=== PATIENT | female | born 1990 | race Caucasian/White ===

== ENCOUNTER → 2017-05-20 | Outpatient (CLI) | payer BC ==
[2017-05-20 10:31] LABS: BILIRUBIN,URINE NEGATIVE (NEGATIVE); BLOOD/HEMOGLOBIN,URINE NEGATIVE (NEGATIVE); GLUCOSE, URINE NEGATIVE (NEGATIVE); KETONES,URINE NEGATIVE (NEGATIVE); LEUKOCYTE ESTERASE ,URINE 1+ (NEGATIVE); NITRITES,URINE NEGATIVE (NEGATIVE); PROTEIN,URINE NEGATIVE (NEGATIVE); UROBILINOGEN,URINE NORMAL (NORMAL)
[2017-05-20 10:32] LABS: BASOPHILS # (AUTO) 0.1 X10^3/uL (0.0-0.1); BASOPHILS % (AUTO) 1.1 % (0.2-1.0); EOSINOPHILS # (AUTO) 0.6 x10^3/uL (0.0-0.2); EOSINOPHILS % (AUTO) 5.5 % (0.9-2.9); HEMATOCRIT 37.3 % (36.0-47.0); HEMOGLOBIN 12.5 g/dL (12.0-16.0); LYMPHOCYTES # (AUTO) 2.6 X10^3/uL (1.3-2.9); LYMPHOCYTES % (AUTO) 22.4 % (21.0-51.0); MEAN CORPUSCULAR HEMOGLOBIN 28.7 pg (27.0-34.0); MEAN CORPUSCULAR HGB CONC 33.7 g/dL (33.0-35.0); MEAN CORPUSCULAR VOLUME 85.3 fL (80.0-100.0); MONOCYTES # (AUTO) 0.5 x10^3/uL (0.3-0.8); NEUTROPHILS # (AUTO) 7.7 x10^3/uL (2.2-4.8); PLATELET COUNT 202 X10^3/uL (150.0-450.0); RED BLOOD COUNT 4.37 X10^6/uL (3.5-5.4); RED CELL DISTRIBUTION WIDTH 13.6 % (11.6-16.5); WHITE BLOOD COUNT 11.5 X10^3/uL (3.6-10.0)
[2017-05-20 10:46] LABS: APPEARANCE,URINE CLEAR (CLEAR); COLOR,URINE YELLOW (YELLOW)
[2017-05-20 10:47] LABS: BACTERIA,URINE NEGATIVE /HPF (NEGATIVE); RBC,URINE 0-2 /HPF (NEGATIVE); SQUAMOUS EPITHELIAL CELL,UR NEGATIVE /HPF (NEGATIVE)
[2017-05-20 10:53] LABS: BLOOD UREA NITROGEN 11 mg/dL (7-18); CALCIUM 8.7 mg/dL (8.5-10.1); CARBON DIOXIDE 23.7 mmol/L (21-32); CHLORIDE 105 mmol/L (98-107); CREATININE 0.74 mg/dL (0.55-1.02); SODIUM 137 mmol/L (136-145); eGFR BLACK RACES > 60 (>60); eGFR NON BLACK RACES > 60 (>60)
== END ==
LOC: LAB 10:07
PROVIDERS: ATTEND Specialist
DX: Z01.818 Encounter for other preprocedural examination (principal); Z34.83 Encounter for supervision of other normal pregnancy, third trimester
CPT/HCPCS: 36415; 80048; 80307; 81001; 85025; 86592; 86850; 86900; 86901; G0434

== ENCOUNTER 2017-05-22 06:24 | Inpatient (IN) | payer BC ==
[~2017-05-22 06:24] MED LIST: TORADOL 30 MG VIAL ONE
[2017-05-22] MEDS ORDERED: AMPICILLIN VIAL 2 GM 2 GM in NS 100 ML IV + SPIKE MINIBAG* 100 ML IV SCH (06:27)
[2017-05-22] MEDS ORDERED: REGLAN INJ 10 MG VIAL IVP PRN ×2 (06:27→18:00)
[2017-05-22] MEDS ORDERED: PHENERGAN INJ 25 MG IV PRN ×3 (06:27→18:00)
[2017-05-22] MEDS ORDERED: D5LR 1L W PITOCIN 10 UNITS/L 10 UNITS/1,000 ML BAG IV PRN (06:27)
[2017-05-22] MEDS ORDERED: NUBAIN INJ 200 MG VIAL MULTIDOSE IVP PRN (06:27)
[2017-05-22] MEDS ORDERED: PITOCIN IVP ONE (06:27)
[2017-05-22] MEDS ORDERED: D5 1/2 NS 1000 ML 1,000 ML IV SCH (06:27)
[2017-05-22] MEDS ORDERED: LR 1000 ML IV 1,000 ML IV ONE ×2 (06:36→11:01)
[2017-05-22] MEDS ORDERED: AMPICILLIN VIAL 2 GM ONE (06:37)
[2017-05-22] MEDS ORDERED: AMPICILLIN VIAL 1 GM ONE ×2 (06:37→14:41)
[2017-05-22] MEDS ORDERED: D5 1/2 NS 1L W PITOCIN 20 UNITS/L 20 UNITS/1,000 ML BAG IV ONE (06:37)
[2017-05-22] MEDS ORDERED: NS 100 ML IV 200 ML IV ONE (06:41)
--- NOTE | 2017-05-22 07:22 | DR.OB ---
OB Quick Note - Assessment/Plan Assessment/Plan: L&D 05/22/17 at 6:55am S-No complaint. O-Afebrile,VSS IUN=[id number] with good LTV, +accel, no decel. CTX=occ., mild. CVX=2cm/50%/-1/VTX AROM with clear fluid. IUPC and FSE placed. A-IUP at 39 2/7 weeks for induction +GBS +quad screen for downs P-Begin pitocin induction IV ABX in labor for +GBS Anticipate
[2017-05-22] MEDS ORDERED: FENTANYL INJ 100 mcg ONE (10:15)
[2017-05-22] MEDS ORDERED: NAROPIN EPIDURAL 0.2% + FENTANYL 90MCG 60 ML EPI ONE (10:16)
[2017-05-22] MEDS: AMPICILLIN VIAL 1 GM 1 GM in NS 50 ML IV + SPIKE MINIBAG* 50 ML IV SCH ×3 (10:55→14:50)
[2017-05-22] MEDS ORDERED: NAROPIN EPIDURAL 0.2% + FENTANYL 90MCG EPI SCH (12:00)
--- NOTE | 2017-05-22 12:26 | DR.OB ---
OB Quick Note - Assessment/Plan Assessment/Plan: L&D 05/22/17 at 11:58am Pitocin=14mu/min. Ampicillin S-No complaint. s/p epidural O-Afebrile,VSS YES=267 with good LTV, +accel, no decel. CTX=q 1 1/2 min., about 50-75mmHg CVX=3-4cm/90%/0 A-IUP at 39 2/7 weeks for induction +GBS +quad screen for downs P-Cont. pitocin induction Cont. ABX in labor Anticipate
[2017-05-22] MEDS ORDERED: NS 100 ML IV 100 ML IV ONE (14:42)
--- NOTE | 2017-05-22 17:12 | DR.OB ---
OB Quick Note - Assessment/Plan Assessment/Plan: Delivery Note [facility] 05/22/17 at 5:00pm Patient complete and pushing. Head delivered over intact perineum. Nose and mouth bulb suctioned. No nuchal cord. Compound presentation with right hand to chin noted. Body delivered over intact perineum. Cord clamped x 2 and cut. Infant handed to attendant. Cord sent for gases. Placenta delivered spontaneously / intact / 3 vessel cord. No CVX tears. A small midline second degree tear noted and repaired with 0-vicryl in usual fashion. A viable female , VTX/OA, wt=7'9" and 9/9, stable to NBN. Mother stable to RR. EBL =300cc.
[2017-05-22] MEDS ORDERED: MOTRIN TAB 800 MG PO PRN ×2 (17:13→18:00)
[2017-05-22] MEDS ORDERED: ADACEL TDaP IM ONE (18:00)
[2017-05-22] MEDS ORDERED: AMBIEN PO PRN (18:00)
[2017-05-22] MEDS ORDERED: D5 1/2 NS 1000 ML 1,000 ML with PITOCIN 20 UNITS IV SCH ×2 (18:00)
[2017-05-22] MEDS ORDERED: MILK OF MAGNESIA PO PRN (18:00)
[2017-05-22] MEDS ORDERED: DERMOPLAST SPRAY TOP PRN (18:00)
[2017-05-22] MEDS: ZANTAC PO SCH (21:18)
[2017-05-23] MEDS: D5 1/2 NS 1000 ML 1,000 ML with PITOCIN 20 UNITS IV SCH ×6 (05:17→10:07)
[2017-05-23 05:30] LABS: HEMOGLOBIN 11.7 g/dL (12.0-16.0)
[2017-05-23] MEDS: PRENATAL PLUS PO SCH (08:44)
[2017-05-23] MEDS: ZANTAC PO SCH ×2 (08:48→22:10)
[2017-05-24] MEDS: PRENATAL PLUS PO SCH (08:02)
[2017-05-24] MEDS: ZANTAC PO SCH (08:03)
[2017-05-24 16:02] VITALS: BP 116/75
== END 2017-05-24 17:00 | disposition home or self-care (01) | DRG 775 ==
LOC: LD 06:24 → MED/SURG 18:03
PROVIDERS: ADMIT Specialist; ATTEND Specialist
PROC: 10E0XZZ Delivery of Products of Conception, External Approach (ICD-10-PCS; principal; 2017-05-22)
PROC: 0KQM0ZZ Repair Perineum Muscle, Open Approach (ICD-10-PCS; 2017-05-22)
PROC: 10907ZC Drainage of Amniotic Fluid, Therapeutic from Products of Conception, Via Natural or Artificial Opening (ICD-10-PCS; 2017-05-22)
PROC: 3E033VJ Introduction of Other Hormone into Peripheral Vein, Percutaneous Approach (ICD-10-PCS; 2017-05-22)
PROC: 00HU33Z Insertion of Infusion Device into Spinal Canal, Percutaneous Approach (ICD-10-PCS; 2017-05-22)
PROC: 3E0234Z Introduction of Serum, Toxoid and Vaccine into Muscle, Percutaneous Approach (ICD-10-PCS; 2017-05-22)
DX: O99.824 Streptococcus B carrier state complicating childbirth (principal); Z37.0 Single live birth; B95.1 Streptococcus, group B, as the cause of diseases classified elsewhere; O70.1 Second degree perineal laceration during delivery; O28.5 Abnormal chromosomal and genetic finding on antenatal screening of mother; Z3A.39 39 weeks gestation of pregnancy; Z23 Encounter for immunization
CPT/HCPCS: 09167; 36415; 59409; 85014; 85018; A4216; A4222; S0197; J0290; J1885; J2590; J3010; J7042; J7120

== ENCOUNTER 2020-11-06 15:09 | Inpatient (IN) ==
[2020-11-06 15:14] VITALS: BMI 36.8
[2020-11-06] MEDS ORDERED: LR 1000 ML IV 1,000 ML IV ONE (15:16)
[2020-11-06] MEDS ORDERED: BENADRYL INJ 50 MG VIAL IVP PRN ×3 (15:20→18:06)
[2020-11-06] MEDS ORDERED: TORADOL 30 MG VIAL IVP PRN ×2 (15:20→18:06)
[2020-11-06] MEDS ORDERED: ZOFRAN INJ 4 MG VIAL IVP PRN ×3 (15:20→18:06)
[2020-11-06] MEDS ORDERED: D5 1/2 NS 1L W PITOCIN 20 UNITS/L 20 UNITS/1,000 ML BAG IV ONE (15:40)
[2020-11-06] MEDS ORDERED: XYLOCAINE 1 % (PLAIN) ONE (15:40)
[2020-11-06] MEDS ORDERED: DILAUDID INJ ONE (15:40)
[2020-11-06] MEDS ORDERED: NS 1000 ML 1,000 ML ONE (15:41)
[2020-11-06] MEDS ORDERED: ZOFRAN INJ 4 MG VIAL ONE (15:45)
[2020-11-06] MEDS ORDERED: TORADOL 30 MG VIAL ONE (15:45)
[2020-11-06] MEDS ORDERED: PITOCIN ONE (15:45)
[2020-11-06] MEDS ORDERED: LR IV ONE (15:45)
[2020-11-06] MEDS ORDERED: DIPRIVAN VIAL ONE (15:45)
[2020-11-06] MEDS ORDERED: KETALAR ONE (15:45)
[2020-11-06] MEDS ORDERED: ANCEF 1 GRAM IV PREMIX* 2 G/100 ML BAG IV ONE (15:46)
[2020-11-06] MEDS ORDERED: D5 1/2 NS 1000 ML 1,000 ML IV SCH (16:00)
[2020-11-06 16:14] LABS: AMNISURE ROM TEST NO MEMBRANES RUPTURE (NO RUPTURE)
[2020-11-06 16:39] LABS: BILIRUBIN,URINE NEGATIVE (NEGATIVE); BLOOD/HEMOGLOBIN,URINE 1+ (NEGATIVE); GLUCOSE, URINE NEGATIVE (NEGATIVE); KETONES,URINE NEGATIVE (NEGATIVE); LEUKOCYTE ESTERASE ,URINE 1+ (NEGATIVE); NITRITES,URINE NEGATIVE (NEGATIVE); PROTEIN,URINE 3+ (NEGATIVE); UROBILINOGEN,URINE NORMAL (NORMAL)
[2020-11-06 16:43] LABS: APPEARANCE,URINE CLEAR (CLEAR); COLOR,URINE YELLOW (YELLOW)
[2020-11-06 16:44] LABS: BACTERIA,URINE NEGATIVE /HPF (NEGATIVE); RBC,URINE 0-2 /HPF (0-3); SQUAMOUS EPITHELIAL CELL,UR RARE /HPF (NEGATIVE)
[2020-11-06] MEDS ORDERED: OFIRMEV IV 1000 MG VIAL 1,000 MG/100 ML VIAL IV ONE (17:05)
[2020-11-06] MEDS ORDERED: BARHEMSYS INJ IVP PRN (17:29)
[2020-11-06] MEDS ORDERED: PHENERGAN INJ 25 MG IM PRN (17:29)
[2020-11-06] MEDS ORDERED: REGLAN INJ 10 MG VIAL IVP PRN ×2 (17:29→18:06)
[2020-11-06 18:02] LABS: BASOPHILS # (AUTO) 0.1 X10^3/uL (0.0-0.1); BASOPHILS % (AUTO) 0.7 % (0.2-1.0); EOSINOPHILS # (AUTO) 0.2 x10^3/uL (0.0-0.2); EOSINOPHILS % (AUTO) 1.9 % (0.9-2.9); HEMOGLOBIN 9.7 g/dL (12.0-16.0); LYMPHOCYTES # (AUTO) 2.8 X10^3/uL (1.3-2.9); LYMPHOCYTES % (AUTO) 27.4 % (21.0-51.0); MEAN CORPUSCULAR HEMOGLOBIN 27.6 pg (27.0-34.0); MEAN CORPUSCULAR HGB CONC 33.4 g/dL (33.0-35.0); MEAN CORPUSCULAR VOLUME 82.7 fL (80.0-100.0); MEAN PLATELET VOLUME 11.3 fL (7.4-11.0); MONOCYTES # (AUTO) 0.4 x10^3/uL (0.3-0.8); MONOCYTES % (AUTO) 3.8 % (0.0-13.0); NEUTROPHILS # (AUTO) 6.7 x10^3/uL (2.2-4.8); NEUTROPHILS % (AUTO) 66.2 % (42.0-75.0); PLATELET COUNT 150 X10^3/uL (150.0-450.0); RED BLOOD COUNT 3.51 X10^6/uL (3.5-5.4); RED CELL DISTRIBUTION WIDTH 13.7 % (11.6-16.5); WHITE BLOOD COUNT 10.1 X10^3/uL (3.6-10.0)
[2020-11-06] MEDS ORDERED: NARCAN INJ IVP PRN (18:06)
[2020-11-06] MEDS ORDERED: PERCOCET TAB 5/325 MG PO PRN (18:06)
[2020-11-06] MEDS ORDERED: MYLICON TAB 80 MG CHEW PO PRN (18:06)
[2020-11-06] MEDS ORDERED: D5 1/2 NS 1000 ML 1,000 ML with PITOCIN 20 UNITS IV SCH ×2 (18:06)
[2020-11-06 18:12] LABS: ALANINE AMINOTRANSFERASE 30 Units/L (12-78); ALBUMIN 1.9 g/dL (3.4-5.0); ALKALINE PHOSPHATASE 325 Units/L (46-116); ASPARTATE AMINO TRANSFERASE 48 Units/L (15-37); BLOOD UREA NITROGEN 14 mg/dL (7-18); CALCIUM 7.9 mg/dL (8.5-10.1); CARBON DIOXIDE 19.7 mmol/L (21-32); CHLORIDE 110 mmol/L (98-107); COR CA(FOR HYPOALB) 9.6 mg/dL (8.5-10.1); SODIUM 141 mmol/L (136-145); eGFR NON BLACK RACES > 60 (>60)
[2020-11-07] MEDS: ADACEL or BOOSTRIX TDaP VACCINE IM ONE (04:44)
[2020-11-07] MEDS ORDERED: ADACEL or BOOSTRIX TDaP VACCINE IM ONE (04:44)
[2020-11-07 04:59] LABS: BASOPHILS # (AUTO) 0.1 X10^3/uL (0.0-0.1); BASOPHILS % (AUTO) 0.7 % (0.2-1.0); EOSINOPHILS # (AUTO) 0.1 x10^3/uL (0.0-0.2); EOSINOPHILS % (AUTO) 0.7 % (0.9-2.9); HEMATOCRIT 21.4 % (36.0-47.0); LYMPHOCYTES # (AUTO) 2.9 X10^3/uL (1.3-2.9); LYMPHOCYTES % (AUTO) 21.1 % (21.0-51.0); MEAN CORPUSCULAR HEMOGLOBIN 28.2 pg (27.0-34.0); MEAN CORPUSCULAR HGB CONC 32.9 g/dL (33.0-35.0); MEAN CORPUSCULAR VOLUME 85.7 fL (80.0-100.0); MEAN PLATELET VOLUME 10.7 fL (7.4-11.0); MONOCYTES # (AUTO) 0.5 x10^3/uL (0.3-0.8); NEUTROPHILS % (AUTO) 73.5 % (42.0-75.0); PLATELET COUNT 128 X10^3/uL (150.0-450.0); RED CELL DISTRIBUTION WIDTH 13.2 % (11.6-16.5); WHITE BLOOD COUNT 13.6 X10^3/uL (3.6-10.0)
[2020-11-07] MEDS ORDERED: VENOFER IV ONE ×3 (08:20→09:00)
[2020-11-07] MEDS ORDERED: NS IV ONE ×2 (08:20)
[2020-11-07] MEDS ORDERED: PERCOCET TAB 5/325 MG PO PRN (08:21)
[2020-11-07] MEDS: PRENATAL PLUS PO SCH (08:42)
[2020-11-07] MEDS ORDERED: NS 100 ML IV 0 ML ONE (09:00)
[2020-11-07] MEDS: MOTRIN TAB 800 MG PO SCH ×3 (09:06→21:00)
[2020-11-07] MEDS ORDERED: NS 100 ML IV 100 ML with VENOFER 400 MG IV NR ×2 (10:00)
[2020-11-07] MEDS: BACTROBAN TOPICAL OINT TOP SCH ×2 (14:00→21:00)
[2020-11-07] MEDS ORDERED: COLACE CAP 100 MG PO SCH (21:00)
[2020-11-08] MEDS: MOTRIN TAB 800 MG PO SCH (05:07)
[2020-11-08] MEDS: BACTROBAN TOPICAL OINT TOP SCH (05:07)
[2020-11-08] MEDS: PRENATAL PLUS PO SCH (08:16)
[2020-11-08 08:43] VITALS: BP 150/96
== END 2020-11-08 11:45 | disposition home or self-care (01) | DRG 785 ==
LOC: ER 15:09 → LD 15:20 → MED/SURG 17:09
PROVIDERS: ADMIT Specialist; ATTEND Specialist
DX: Z30.2 Encounter for sterilization; O31.8X30 Other complications specific to multiple gestation, third trimester, not applicable or unspecified; Z37.2 Twins, both liveborn; O32.1XX1 Maternal care for breech presentation, fetus 1; Z20.822 Contact with and (suspected) exposure to COVID-19; O30.003 Twin pregnancy, unspecified number of placenta and unspecified number of amniotic sacs, third trimester; Z3A.37 37 weeks gestation of pregnancy; Z23 Encounter for immunization; R55 Syncope and collapse